=== PATIENT | female | born 1980 | race Caucasian/White ===

== ENCOUNTER 2024-10-30 14:36 | Emergency (ER) | payer OTHER, SELFPAY ==
[2024-10-30 14:44] VITALS: BP 126/97; PULSE 72; TEMP 36.7; O2SAT 98; BMI 35.9
[2024-10-30] MEDS: LIDOCAINE 2% JELLY 10 ML UR (15:21)
--- NOTE | 2024-10-30 15:28 | ED_ITS ---
HPI HPI - General Adult General Chief complaint: Abdominal Pain Stated complaint: HEMROIDS Time Seen by Provider: 10/30/24 14:42 Source: patient Mode of arrival: walk-in Limitations: no limitations History of Present Illness HPI narrative: Patient is a 44-year-old female presents to the emergency department for rectal pain for the last 2 days. She states she is afraid to have a bowel movement because she has severe pain in the rectum with having a bowel movement. She has known hemorrhoids but they have not been bleeding. She states she tried to use an oral stool softener and attempted to disimpact herself but states she was not able to remove any stool. She has no significant abdominal pain, fevers, vomiting. No concern for . Related Data Previous Rx's ?Medication ?Instructions ?Recorded bisacodyl 10 mg rectal suppository 10 mg WA DAILY 2 da ys #12 ea 10/30/24 (Dulcolax (bisacodyl)) hydrocortisone 1 %-pramoxine 1 % 1 applic WA QID PRN r ectal pain 10/30/24 rectal foam (Proctofoam HC) #10 grams lidocaine HCl 2 % mucosal solution 1 applic mucous mem brane QID PRN 10/30/24 (Lidocaine Viscous) pain #100 mL Allergies Allergy/AdvReac Type Severity Reaction Status Date / Time ketorolac (From Toradol) Allergy Severe Confusion Verified 10/30/24 14:43 Opioid HPI Opioid Management Most Recent Opioid Data: Last Pain Scale 4 Today, 14:44 Review of Systems ROS Constitutional Denies: fever or chills Respiratory Denies: shortness of breath Gastrointestinal Reports: rectal pain; Denies: abdominal pain, nausea or vomiting Integumentary/Breast Denies: rash Neurological Denies: numbness in extremities or weakness in extremities Hematologic/Lymphatic Denies: easy bruising or easy bleeding PFSH PFSH Social History Little interest or pleasure in doing things: not at all Feeling down, depressed, or hopeless: not at all Exam Narrative Exam Narrative: Gen.: Awake, alert, in no distress Head: Normocephalic, atraumatic ENT: Moist mucous membranes Respiratory: No respiratory distress Gastrointestinal: Abdomen is soft, nondistended and nontender to palpation; rectal exam performed with Che Carter, RN at bedside. 3 external hemorrhoids noted at the opening of the rectum with no swelling or thrombosis noted. No active bleeding. Internal rectal exam performed with Uro-Jet, soft stool palpated deep in the rectal vault with no firm or impacted stool noted. Possible internal hemorrhoids palpated, some discomfort with rectal exam Extremities: Moves extremities equally Psych: Normal mood and affect Neuro: No focal neuro deficit Skin: Warm, dry, intact Constitutional Vital Signs, click to edit/add: Last Vital Signs Temp 98.1 F 10/30/24 14:44 Pulse 72 10/30/24 14:44 Resp 20 10/30/24 14:44 BP 126/97 H 10/30/24 14:44 Pulse Ox 98 10/30/24 14:44 O2 Del Method Room Air 10/30/24 14:44 Course Vital Signs Vital signs: Vital Signs Temperature 98.1 F 10/30/24 14:44 Pulse Rate 72 10/30/24 14:44 Respiratory Rate 20 10/30/24 14:44 Blood Pressure 126/97 H 10/30/24 14:44 Pulse Oximetry 98 10/30/24 14:44 Oxygen Delivery Method Room Air 10/30/24 14:44 Temperature 98.1 F 10/30/24 14:44 Pulse Rate 72 10/30/24 14:44 Respiratory Rate 20 10/30/24 14:44 Blood Pressure 126/97 H 10/30/24 14:44 Pulse Oximetry 98 10/30/24 14:44 Oxygen Delivery Method Room Air 10/30/24 14:44 Medical Decision Making MDM Narrative Medical decision making narrative: Patient with rectal pain on exam, no impacted stool able to be removed on rectal exam. Small external hemorrhoids with no evidence of thrombosis or bleeding. Patient placed on rectal suppositories, Proctofoam and given topical lidocaine for comfort. She was given education and reassurance. Follow-up with PCP and return to the ER if symptoms change or worsen SHARED APC VISIT, PHYSICIAN ATTESTATION: Uhs-odxk-wk-face I performed a substantive part of the MDM during the patient?s E/M visit. I personally made or approved the documented management plan and acknowledge its risk of complications. Medical Records Medical records reviewed: Yes I reviewed the patient's medical records Discharge Plan Discharge Chief Complaint: Abdominal Pain Clinical Impression: Anal or rectal pain, Hemorrhoids Patient Disposition: Home, Self-Care Time of Disposition Decision: 15:24 Condition: Good Prescriptions / Home Meds: New lidocaine HCl [Lidocaine Viscous] 2 % solution 1 applic mucous membrane QID PRN (Reason: pain) Qty: 100 0RF bisacodyl [Dulcolax (bisacodyl)] 10 mg suppository 10 mg WA DAILY 2 Days Qty: 12 0RF Proctofoam HC 1-1 % foam 1 applic WA QID PRN (Reason: rectal pain) Qty: 10 0RF Print Language: Syriac Instructions: Rectal Pain (ED) Referrals: JANICE GONZALEZ [Primary Care Provider, Family Practice] - 1 week
== END 2024-10-30 15:38 | disposition home or self-care (01) ==
PROVIDERS: Emergency Provider Emergency Medicine; PCP Family Medicine
DX: K62.89 Other specified diseases of anus and rectum (principal); K64.4 Residual hemorrhoidal skin tags
CPT/HCPCS: 99283

== ENCOUNTER 2024-12-21 14:00 | Outpatient (OUT) | payer OTHER, SELFPAY ==
--- OUTSIDE RECORDS SUMMARY | 2024-12-22 11:31 | XMS_ITS | Clinical Summary ---
Author Organization [facility] Address [id number] [address] [place] [address] Care Team Providers Care Marketing Operations Manager Name Role Phone Nomi Wall DO Primary Care Provider [phone] Allergies Active Allergy Reactions Criticality Noted Date Comments Ketorolac Hallucinations 08/01/2022 Medications No known medications Active Problems No known active problems Family History Medical History Relation Name Comments Heart attack Father Hypertension Mother Relation Name Status Comments Father Alive Mother Alive Social History Tobacco Use Types Packs/Day Years Used Date Smoking Tobacco: Never Smokeless Tobacco: Never Tobacco Cessation:Counseling Given: Not Answered Alcohol Use Standard Drinks/Week Comments Yes 0 (1 standard drink = 0.6 oz pur e alcohol) PHQ-2 Answer Date Recorded Total Score 0 08/01/2022 Childcare Answer Date Recorded Childcare Unknown 11/11/2018 Employment Answer Date Recorded Employment Unknown 11/11/2018 Hunger Screening Answer Date Recorded Within the past 12 months we worried whether our food would run out before we got money to buy more. Never True 08/01/2022 Within the past 12 months th e food we bought just didn't last and we didn't have money to get more. Never True 08/01/2022 Comments Unknown Sex and Gender Information Value Date Recorded Sex Assigned at Not on file Legal Sex Female 12:02 PM EDT Gender Identity Not on file Sexual Orientation Not on file Last Filed Vital Signs Vital Sign Reading Time Taken Comments Blood Pressure 139/84 08/01/2022 3:43 PM EST Pulse 81 08/01/2022 3:43 PM EST Temperature 36.6 C (97.9 F) 08/01/2022 3:43 PM EST Respiratory Rate - - Oxygen Saturation 97% 08/01/2022 3:43 PM EST Inhaled Oxygen Concentration - - Weight 90.4 kg (199 lb 4.8 oz) 08/01/2022 3:43 P M EST Height 154.9 cm (5' 1 ) 08/01/2022 3:43 PM EST Body Mass Index 37.66 08/01/2022 3:43 PM EST Plan of Treatment Health Maintenance Due Date Last Done Comments Tobacco Screening 1993 DTaP,Tdap and Td Vaccines (1 - Tdap) 2000 Pap Smear 2002 Adult BMI Screening 08/02/2023 08/01/2022 Depression Screening 08/02/2023 08/01/2022 Influenza Vaccine 01/31/2025 Medical Devices Not on file Insurance [employer] Member Subscriber Plan / Payer (Ef fective 2022-Present) Name:Lety Fatima Relation to Subscriber:Spouse Name:EDGARDO FATIMA Date of :1981 Address: [address] [place] [address] [address] [place] [id number] Payer ID:Not on file Group ID:[id number] Type:Not on file Address: [place] [id number] Care Teams Marketing Operations Manager Relationship Specialty Start Date End Date Nomi Wall DO [address], [place] [address] PCP - General Family Medicine 07/16/22
== END 2024-12-21 14:01 | disposition home or self-care (01) ==
LOC: SLEEP 12-22 11:29
PROVIDERS: PCP Psychiatry & Neurology Neurology; Visit Provider Psychiatry & Neurology Neurology
DX: G47.33 Obstructive sleep apnea (adult) (pediatric) (principal)
CPT/HCPCS: 95806

== ENCOUNTER 2025-02-25 19:23 | Emergency (ER) | payer OTHER, SELFPAY ==
[2025-02-25 19:28] VITALS: BP 148/93; PULSE 78; TEMP 37; O2SAT 98; BMI 37.8
--- NOTE | 2025-02-25 19:46 | US_ITS ---
The [address] [address] Patient Name: KERVIN FATIMA MRN: [id number] date: 1980 Sex: F Assigned Patient Location: ED.MAIN Current Patient Location: ED.MAIN Accession/Order Number: [id number] Exam Date: 02/25/2025 20:30 Report Date: 02/25/2025 21:51 At the request of: CANDACE HUMPHREY MD Procedure: US right upper quadrant Ultrasound right upper quadrant INDICATION: Right upper quadrant pain for one week COMPARISON: None FINDINGS: Liver is unremarkable size and echogenicity midline shift measuring 14.5 mm. Normal hepatopedal flow. Gallbladder contracted. Negative Yao's sign no gallstones identified. No wall thickening. Common bile duct 4.2 mm. Visualized pancreas unremarkable. Right kidney unremarkable in size without hydronephrosis 9.5 x 5.5 x 4.6 cm. US/US right upper quadrant IMPRESSION: Contracted gallbladder likely related to recent meal Impression dictated by: Niko Valentin M.D. 02/25/2025 9:51 PM Dictation Location: [place] [address] Electronically authenticated by: [id number] Y Date: 02/25/2025 21:51
--- NOTE | 2025-02-25 19:48 | ED.ABDPAIN1 ---
HPI - Abdominal Pain General Chief Complaint: Abdominal Pain Stated Complaint: PRESSURE IN ABDOMIN BY RIBCAGE Time Seen by Provider: 02/25/25 19:42 Source: patient Mode of arrival: walk-in History of Present Illness HPI narrative: past history of x 2, abdominal plasty and appendectomy presents complaining of abdominal pain for the past week . Point across her upper abdomen. Pain sometimes radiates to her back. Describes feeling full after only eating small amount. last ate around 5 hours ago. No vomiting or diarrhea. Increased discomfort with deep breath Related Data Home Medications ?Medication ?Instructions ?Recorded ?Confirmed No Known Home Medications 02/25/25 02/25/25 Allergies Allergy/AdvReac Type Severity Reaction Status Date / Time ketorolac (From Toradol) Allergy Severe Confusion Verified 10/30/24 14:43 Review of Systems ROS Status of ROS 10 or more systems reviewed and unremarkable except as noted in history and below [facility] Social History Little interest or pleasure in doing things: not at all Feeling down, depressed, or hopeless: not at all Exam Constitutional Vital Signs, click to edit/add: Last Vital Signs Temp 98.6 F 02/25/25 19:28 Pulse 78 02/25/25 21:17 Resp 18 02/25/25 21:17 BP 131/106 H 02/25/25 21:17 Pulse Ox 97 02/25/25 21:17 O2 Del Method Room Air 02/25/25 21:17 Common normals: no apparent distress, average body habitus, oriented x3, no limitations, healthy appearing, alert and well nourished [facility] Common normals: normocephalic and head/scalp atraumatic Eye Common normals: PERRL, EOMs intact bilaterally and conjunctivae normal Respiratory Common normals: normal respiratory effort, no retractions, no use of accessory muscles and clear to auscultation bilaterally Cardio Common normals: regular rate, regular rhythm, S1 normal heart sound and S2 normal heart sound GI Common normals: Normal to inspection, nondistended, normoactive bowel sounds present, soft to palpation and non-tender Extremity Common normals: normal to inspection and full ROM Neuro Common normals: oriented x3, CN's II-XII intact bilaterally, moves all extremities and no focal motor deficits Psych Appearance: grossly normal Course Vital Signs Vital signs: Vital Signs Temperature 98.6 F 02/25/25 19:28 Pulse Rate 78 02/25/25 19:28 Respiratory Rate 18 02/25/25 19:28 Blood Pressure 148/93 H 02/25/25 19:28 Pulse Oximetry 98 02/25/25 19:28 Oxygen Delivery Method Room Air 02/25/25 19:28 Temperature 98.6 F 02/25/25 19:28 Pulse Rate 78 02/25/25 21:17 Respiratory Rate 18 02/25/25 21:17 Blood Pressure 131/106 H 02/25/25 21:17 Pulse Oximetry 97 02/25/25 21:17 Oxygen Delivery Method Room Air 02/25/25 21:17 MDM - Abdominal Pain MDM Narrative Medical decision making narrative: patient presents complaining of upper abdominal pain. exam nontender. ongoing past week. fullness after eating small amount or even drinking water. no fever. GB U/S unrevealing. No worrisome labs findings . CT with finding of right renal stone but no obstruction or findings to explain her symptoms. Patient advised symptoms may be GERD related. Given dose or protonix and discharged to follow up with her doctor Lab Data Labs: Lab Results 02/25/25 Range/Units 19:40 WBC 8.0 (4.0-11.0) 10^3/uL RBC 5.14 (4.20-5.40) 10^6/uL Hgb 14.6 (12.0-16.0) g/dL Hct 43.5 (36.0-48.0) % MCV 84.6 (81.0-99.0) fL MCH 28.4 (26.7-34.0) pg MCHC 33.6 (29.9-35.2) g/dL RDW 13.2 (11.0-15.0) % Plt Count 368 (150-450) 10^3/uL MPV 9.0 L (9.5-13.5) fL Neut % (Auto) 51.2 (43.0-75.0) % Lymph % (Auto) 36.4 (20.5-60.0) % [place] % (Auto) 7.5 (1.7-12.0) % Eos % (Auto) 3.0 (0.9-7.0) % Baso % (Auto) 1.0 (0.2-2.0) % Neut # (Auto) 4.1 (1.4-6.5) 10^3/uL Lymph # (Auto) 2.9 (1.2-3.8) 10^3/uL [place] # (Auto) 0.6 (0.3-0.8) 10^3/uL Eos # (Auto) 0.2 (0.0-0.7) 10^3/uL Baso # (Auto) 0.1 (0.0-0.1) 10^3/uL Abs Immat Gran (auto) 0.07 H (0.00-0.03) 10^3/uL Imm/Tot Granulo (auto) 0.9 H (0.0-0.5) % Sodium 138 (136-145) mmol/L Potassium 3.3 L (3.5-5.1) mmol/L Chloride 104 (98-107) mmol/L Carbon Dioxide 28.6 (21.0-32.0) mmol/L Anion Gap 8.7 BUN 12.0 (7.0-18.0) mg/dL Creatinine 0.87 (0.55-1.02) mg/dL Est GFR ( Amer) >60 (>=60 mL/min/1.73m^2) Est GFR (Non-Af Amer) >60 (>=60 mL/min/1.73m^2) BUN/Creatinine Ratio 13.8 Glucose 75 (74-106) mg/dL Lactate 1.0 (0.4-2.0) mmol/L Calcium 8.8 (8.5-10.1) mg/dL Total Bilirubin 0.2 (0.2-1.0) mg/dL AST 22 (15-37) U/L ALT 44 (14-59) U/L Alkaline Phosphatase 75 (46-116) U/L Total Protein 7.5 (6.4-8.2) g/dL Albumin 3.7 (3.4-5.0) g/dL Globulin 3.8 g/dL Albumin/Globulin Ratio 1.0 Lipase 38.0 (16.0-77.0) U/L Urine Color Yellow (YELLOW) Urine Clarity Clear (CLEAR) Urine pH 5.5 (5.0-9.0) Ur Specific [place] >=1.030 A (1.005-1.025) Urine Protein Negative (NEG/TRACE) mg/dL Urine Glucose (UA) Negative (NEGATIVE) mg/dL Urine Ketones Negative (NEGATIVE) mg/dL Urine Occult Blood Moderate A (NEGATIVE) Urine Nitrite Negative (NEGATIVE) Urine Bilirubin Negative (NEGATIVE) Urine Urobilinogen 0.2 (0.2-1.0) EU/dL Ur Leukocyte Esterase Negative (NEGATIVE) Urine RBC 2-5 A (0-2) #/HPF Urine WBC 0-2 A (NONE SEEN) #/HPF Ur Squamous Epith Cells Few A (NONE/RARE) #/LPF Urine Crystals None seen (None Seen) #/HPF Urine Bacteria Trace A (NONE SEEN) #/HPF Urine Casts None seen (NONE SEEN) #/LPF Urine Mucus None seen (NONE SEEN) Ur Culture Indicated? No Urine HCG, Qual Negative (NEGATIVE) Discharge Plan Discharge Chief Complaint: Abdominal Pain Clinical Impression: Abdominal pain Patient Disposition: Home, Self-Care Prescriptions / Home Meds: No Action No Known Home Medications Print Language: Japanese Instructions: Abdominal Pain (ED) Additional Instructions: follow up with your doctor next week for recheck Referrals: Ashleigh Vazquez DO [Primary Care Provider, Neurology] - 1 week
[2025-02-25 20:03] LABS: Hematocrit 43.5 % (36.0-48.0); Hemoglobin 14.6 g/dL (12.0-16.0); Immature Granulocytes Abs Auto 0.07 10^3/uL (0.00-0.03); Immature Granulocytes Pct Auto 0.9 % (0.0-0.5); Lymphocytes Absolute Auto 2.9 10^3/uL (1.2-3.8); Mean Corpuscular HGB Conc 33.6 g/dL (29.9-35.2); Mean Corpuscular Hemoglobin 28.4 pg (26.7-34.0); Mean Corpuscular Volume 84.6 fL (81.0-99.0); Platelet Count 368 10^3/uL (150-450); Red Blood Count 5.14 10^6/uL (4.20-5.40); White Blood Count 8.0 10^3/uL (4.0-11.0)
[2025-02-25 20:06] LABS: Glucose Urine UA NEGATIVE (NEGATIVE)
[2025-02-25 20:12] LABS: HCG Qualitative Urine* NEGATIVE (NEGATIVE)
[2025-02-25 20:15] LABS: Cast Seen? NONE SEEN #/LPF (NONE SEEN); Crystals Seen? None Seen #/HPF (None Seen); Urine Culture Indicated NO
[2025-02-25 20:25] LABS: Lactate/Lactic Acid 1.0 mmol/L (0.4-2.0)
[2025-02-25 20:31] LABS: Alanine Aminotransferase 44 U/L (14-59); Albumin Globulin Ratio 1.0; Albumin Level 3.7 g/dL (3.4-5.0); Alkaline Phosphatase 75 U/L (46-116); Anion Gap 8.7; Aspartate Amino Transferase 22 U/L (15-37); Blood Urea Nitrogen 12.0 mg/dL (7.0-18.0); Calcium 8.8 mg/dL (8.5-10.1); Carbon Dioxide 28.6 mmol/L (21.0-32.0); Chloride 104 mmol/L (98-107); Estimated GFR (African America >60 (>=60 mL/min/1.73m^2); Estimated GFR (Non-African Ame >60 (>=60 mL/min/1.73m^2); Globulin 3.8 g/dL; Glucose 75 mg/dL (74-106); Lipase 38.0 U/L (16.0-77.0); Potassium 3.3 mmol/L (3.5-5.1); Sodium 138 mmol/L (136-145); Total Protein 7.5 g/dL (6.4-8.2)
[2025-02-25 21:17] VITALS: BP 131/106; PULSE 78; O2SAT 97
--- NOTE | 2025-02-25 22:08 | CT_ITS ---
The [address] [address] Patient Name: KERVIN FATIMA MRN: [id number] date: 1980 Sex: F Assigned Patient Location: ER Current Patient Location: ER Accession/Order Number: [id number] Exam Date: 02/25/2025 22:23 Report Date: 02/25/2025 22:48 At the request of: CANDACE HUMPHREY MD Procedure: CT abdomen pelvis w con CT ABDOMEN AND PELVIS WITH INTRAVENOUS CONTRAST: CLINICAL HISTORY: epigastric pain COMPARISON: Ultrasound upper quadrant 02/25/2025 TECHNIQUE: Spiral images were obtained through the abdomen and pelvis following the administration of intravenous contrast. This CT exam was performed using one or more following dose reduction techniques: Automated exposure control, adjustment of the mA and/or kV according to patient size, or use of iterative reconstruction technique. FINDINGS: Lung Bases: [Minimal hypoventilatory changes left lung base.] Organs:Fatty liver. Gallbladder, spleen, adrenals, left kidney appears unremarkable. Right lower pole calculus noted, nonobstructive measuring 6 mm in size. No hydronephrosis.[ GI: Mild stool burden. No bowel obstruction. Appendix not visualized. There are no CT findings acute appendicitis.[ Pelvis:[Mild bladder distention. Uterus unremarkable. No adnexal mass.] Peritoneum/Retroperitoneum:No free air or free fluid. Aorta normal caliber.[ Abd wall/Bones:Degenerative changes L5-S1.[ CT/CT abdomen pelvis w con IMPRESSION: Negative acute inflammatory process or bowel obstruction Right lower pole calculus, nonobstructive. Impression dictated by: Niko Valentin M.D. 02/25/2025 10:48 PM Dictation Location: [place] [address] Electronically authenticated by: [id number] Y Date: 02/25/2025 22:48
[2025-02-25] MEDS: PANTOPRAZOLE SODIUM 40 MG TABLET.DR PO (23:20)
[2025-02-25 23:28] VITALS: BP 136/80; PULSE 79; O2SAT 97
== END 2025-02-25 23:28 | disposition home or self-care (01) ==
PROVIDERS: Emergency Provider Internal Medicine; PCP Psychiatry & Neurology Neurology
DX: R10.10 Upper abdominal pain, unspecified (principal); Z90.49 Acquired absence of other specified parts of digestive tract
CPT/HCPCS: 36415; 74177; 76705; 80053; 81001; 83605; 83690; 84703; 85025; 99285; Q9967

== ENCOUNTER 2025-03-30 12:32 | Outpatient (OUT) | payer OTHER, SELFPAY ==
--- OUTSIDE RECORDS SUMMARY | 2005-12-26 05:05 | XMS_ITS | Continuity of Care Document ---
Author Organization [facility] Address [address] [place] [address] Phone Care Team Providers Care Balloon Dipper Name Role Phone Shawn Wheat Unavailable Unavailable Advance Directives Directive Yes / No Effective Date File Name No Information Encounters Encounter Description Practice Location Reason(s) For Visit Diagnoses Date Provider Providers Copied on Encounter [facility], [address], [place], [place], [id number], [place] tel:[phone] [facility] Internal Medicine No Information Cynthia Escobar. [address], [place], [id number], [place]. tel:[phone] Family History Family Member Type Diagnosis Age At Onset No Information Payers Payer name Insurance type Covered republican ID Authoriza tion(s) No Information Social History Type Description Quantity Date Captured Comments Sex Female Smoking Status No Information Chief Complaint And Reason For Visit No Information Reason For Referral Reason For Referral No Information History Of Present Illness Encounter Date Complaint History Of Prese nt Illness No Information Functional Status Date Functional Assessmen t No Information Instructions Date Instruction Additional Infor mation No Information Assessments Type Assessment Date No Information Patient Care Teams Name Effective Dates (start - stop) Status Members No Information
--- OUTSIDE RECORDS SUMMARY | 2025-03-30 12:35 | XMS_ITS | Clinical Summary ---
Author Organization [facility] tem Address [id number] [address] [place] [address] Care Team Providers Care Java Sql Developer Name Role Phone Nomi Wall DO Primary Care Provider + [phone] Allergies Active AllergyReactionsCriticalityNoted DateCommentsKetorolacHallucinations 08/01/2022 Medications No known medications Active Problems No known active problems Family History Medical HistoryRelationNameCommentsHeart attackFatherHypertensionMotherRelation NameStatusCommentsFatherAliveMotherAlive Social History Tobacco UseTypesPacks/DayYears UsedDateSmoking Tobacco: NeverSmokeless Tobacco: Never Tobacco Cessation:Counseling Given: Not Answered Alcohol UseStandard Drinks/WeekCommentsYes0 (1 standard drink = 0.6 oz pure alcohol)PHQ-2AnswerDate RecordedTotal Gohax286hildcareAnswerDate OpbmlqfhOzoyvxhikOcovjvg17/12/2019EmploymentAnswerDate RecordedEmploymentUnknown 11/11/2018Hunger ScreeningAnswerDate RecordedWithin the past 12 months we worried whether our food would run out before we got money to buy more.Never True08/01/2022Within the past 12 months the food we bought just didn't last and we didn't have money to get more.Never True08/01/2022CommentsUnknownSex and Gender InformationValueDate RecordedSex Assigned at BirthNot on fileLegal RrlRycjgi44/06/2015 12:02 PM EDTGender IdentityNot on fileSexual OrientationNot on file Last Filed Vital Signs Vital SignReadingTime TakenCommentsBlood Afbfifyl707/8408/01/2022 3:43 PM EST Nnohv912508/01/2022 3:43 PM VUYLsnzxdkcfyu07.6 ??C (97.9 ??F)08/01/2022 3:43 PM ESTRespiratory Rate--Oxygen Sewsexazde50%08/01/2022 3:43 PM ESTInhaled Oxygen Concentration--Gjjpgz48.4 kg (199 lb 4.8 oz)08/01/2022 3:43 PM GBDZdclkq031.9 cm (5' 1 )08/01/2022 3:43 PM ESTBody Mass Index37.66008/01/2022 3:43 PM EST Plan of Treatment Health MaintenanceDue DateLast DoneCommentsTobacco Uvfgfqsmv79/04/1994DTaP,Tdap and Td Vaccines (1 - Tdap)2000Pap Smear2002Adult BMI Screening /epression Kfnkkunah74/07/2022Influenza Vaccine 01/31/2025 Medical Devices Not on file [address] [place] [address] Care Teams Team MemberRelationshipSpecialtyStart DateEnd Date Nomi Wall DO [address], [facility] [place] [address] PCP - GeneralFamily Medicine07/16/22
== END 2025-03-30 12:33 | disposition home or self-care (01) ==
LOC: FHNEUROLOG 12:33
PROVIDERS: PCP Psychiatry & Neurology Neurology; Visit Provider Psychiatry & Neurology Neurology
DX: G47.33 Obstructive sleep apnea (adult) (pediatric) (principal); G47.10 Hypersomnia, unspecified; R06.83 Snoring; R51.9 Headache, unspecified; R42 Dizziness and giddiness
CPT/HCPCS: G0463

== ENCOUNTER 2025-06-01 15:59 | Emergency (ER) | payer OTHER, SELFPAY ==
--- OUTSIDE RECORDS SUMMARY | 2025-05-27 12:52 | XMS_ITS | Continuity of Care Document ---
Author Organization [facility] Address [address] [place] [address] Phone Care Team Providers Care Buckle Sewer Machine Name Role Phone Viki Troncoso APRN Attending Provider [phone] Grace Carranza APRN Attending Provider Nomi Wall DO Primary Care Provider Care Teams Patient Care Team Team Status: Active Member Role/Relationship Status Dates Nomi Wall DO Primary Care Provider Active Patient Care Team Team Status: Active Member Role/Relationship Status Dates Viki Troncoso APRN Attending Provider Active Start: March 30, 2025 Patient Care Team Team Status: Inactive Member Role/Relationship Status Dates Grace Carranza APRN Attending Provider Active S tart: May 27, 2025 End: May 27, 2025Davidson Edgra Care ProviderActiveStart: May 27, 2025 End: May 27, 2025 Chief Complaint and Reason for Visit Chief Complaint Admit Date Cough, congestion 1of3 May 27 4:22pm Allergies, Adverse Reactions, Alerts Allergen Type Severity Reaction Last Updated Verified Status tramadol Allergy Unknown Confusion May 27, 2025 5:17pm Ye s Active Social History Smoking Status Unknown if ever smoked Observation Status Observation Response Date of Response Legal Sex Female (finding) [facility] 1980 Medications Medication Status Dose Units Route Directions Qty Days Refills S tart Date Stop Date End Date Reason(s) Instructions Adherence Pantoprazole 40 mg tablet,delayed release (DR/EC ) Discontinued MGPODecember 2024 12:00amDece2024 5:17pmBenzonatate 200 mg kqkqmkpYdkumh258XHYA8-0 TIMES PER DAY as needed for wlgdm9275MevizllbMay 27, 2025 12:00amComplies with drug therapyAlbuterol Sulfate 90 mcg/actuation HFA aerosol axxcuruGsrszj3MTFGAAVXSUEYGQIDXG 4-6 HOURS as needed for shortness of breath or wheezing6.70May 27, 2025 12:00amComplies with drug therapy Vital Signs Vital Reading Result Reference Range Collection Date/Time Height 61 [in_i] May 27, 2025 5:89jiMatmyp04.57 kgMay 27, 2025 5:18pmBody [place]74.4 [degF]97.6-99.0May 27, 2025 5:18pmHeart Rate64 /scf06-404 May 27, 2025 5:18pmRespiratory rate18 /rhn26-96Oewdjkax 26th, 2025 5:18pm Oxygen saturation by Pulse awsunpxk39 %95-100May 27, 2025 5:18pmBP Mllvlhvb591 mm[Hg]100-140May 27, 2025 5:18pmBP Huvqtuesn66 mm[Hg]60-100 May 27, 2025 5:18pmBMI (Body Mass Index)39.4 kg/i8Muhrslom2024 5:18pm Advance Directives Advance Directive Response Recorded Date/ Time Advance Directives No January 08 1:06pm Insurance Providers Guarantor Kelley Sheikh Address [address] [facility] [address]Tlckdwv Info.Home Phone: Coverage Status Update:2025 Payer Group Member ID Coverage Type Subscriber Relationship to Subscriber Effective Date Expiration Date [employer] Not [id number] Chambers , M Id: [id number] [address] [facility] [address] Home Phone: Email: [email or web address] Encounters Encounter Location(s) Arrival/Admit Date Discharge/Departure Date Discharge/Departure Disposition Provider(s) Non-patient / Non-visit -[facility] OutPt Oct er 2024 11:59pm Kelley Valenzuela APRNDeparted Physician/Provider Office Visit-[facility] 5:51pmDischarged to home care or self care (routine discharge)Kelley Rich CHIEF CONCIERGE
[2025-06-01 16:03] VITALS: BP 138/92; PULSE 74; TEMP 37.2; O2SAT 98; BMI 39.3
--- NOTE | 2025-06-01 16:09 | XR_ITS ---
[address] [address] Patient Name: KERVIN FATIMA MRN: [id number] date: 1980 Sex: F Assigned Patient Location: ER Current Patient Location: ER Accession/Order Number: [id number] Exam Date: 06/01/2025 16:15 Report Date: 06/01/2025 16:25 At the request of: OLGA SALDANA MD Procedure: XR chest 2V Plain film chest 2 view HISTORY: Cough for 2 weeks COMPARISON: None FINDINGS: SUPPORT DEVICES: None POSTSURGICAL CHANGES: None HEART: Within normal limits PULMONARY WILLIAM: Within normal limits MEDIASTINUM: Unremarkable LUNGS AND PLEURA: No acute lung process, pleural effusion or pneumothorax identified. BONY STRUCTURES: Intact ADDITIONAL FINDINGS None XR/XR chest 2V IMPRESSION: No acute process. Impression dictated by: Jamie Suggs M.D. 06/01/2025 4:25 PM Dictation Location: [place] [address] Electronically authenticated by: [id number] Y Date: 06/01/2025 16:25
[2025-06-01 16:29] LABS: SARS-CoV-2 Ag NEGATIVE (NEGATIVE)
[2025-06-01 19:40] VITALS: BP 136/96; PULSE 107; O2SAT 97
--- NOTE | 2025-06-01 19:48 | ED_ITS ---
HPI HPI - General Adult General Chief complaint: Upper Respiratory Infection Stated complaint: Upper Respiratory Infection Time Seen by Provider: 06/01/25 19:41 Source: patient Mode of arrival: walk-in History of Present Illness HPI narrative: 44-year-old female presents for 2-week history of a dry cough. She states is unusual for her to get sick like this. Other family members have been sick as well. They seem to have gotten better but she has been sick for 2 weeks. No vomiting or diarrhea or hemoptysis or known fever. She was seen at an urgent care and was put on Proventil and Tessalon. She does not feel much better. Related Data Previous Rx's ?Medication ?Instructions ?Recorded azithromycin 250 mg tablet See Rx Instructions PO .COM PLEX #6 06/01/25 (Zithromax Z-William) tabs codeine 10 mg-guaifenesin 100 mg/5 5 ml PO Q6H PRN cou gh #120 mL 06/01/25 mL oral liquid Allergies Allergy/AdvReac Type Severity Reaction Status Date / Time ketorolac (From Toradol) Allergy Severe Confusion Verified 10/30/24 14:43 Opioid HPI Opioid Management Most Recent Opioid Data: Last Pain Scale 4 02/25/25, 19:48 Review of Systems ROS Narrative A ten point review of systems is negative except as noted above. PFSH PFSH Social History Little interest or pleasure in doing things: not at all Feeling down, depressed, or hopeless: not at all Exam Narrative Exam Narrative: Nurses note and vital signs reviewed General:The patient appears well and in no apparent distress.Patient is resting comfortably on cart. She coughs occasionally. Skin:Warm, dry, no pallor noted.There is no rash noted. Head:Normocephalic, atraumatic Eye: Normal conjunctiva, no drainage Ears, Nose, Mouth, and Throat: oral mucosa is moist. Nares patent. Cardiovascular:Regular Rate and Rhythm Respiratory:Patient is in no distress, no accessory muscle use, lungs are clear to auscultation, no wheezing, rales or rhonchi. Good air movement present. Back:non-tender GI: Soft and nontender Musculoskeletal: The patient has no evidence of calf tenderness, no pitting edema, symmetrical pulses noted bilaterally Neurological:A&O, normal speech Psychiatric:Cooperative Constitutional Vital Signs, click to edit/add: Last Vital Signs Temp 99.0 F 06/01/25 16:03 Pulse 107 H 06/01/25 19:40 Resp 16 06/01/25 19:40 BP 136/96 H 06/01/25 19:40 Pulse Ox 97 06/01/25 19:40 O2 Del Method Room Air 06/01/25 19:40 Course Vital Signs Vital signs: Vital Signs Temperature 99.0 F 06/01/25 16:03 Pulse Rate 74 06/01/25 16:03 Respiratory Rate 18 06/01/25 16:03 Blood Pressure 138/92 H 06/01/25 16:03 Pulse Oximetry 98 06/01/25 16:03 Oxygen Delivery Method Room Air 06/01/25 16:03 Temperature 99.0 F 06/01/25 16:03 Pulse Rate 107 H 06/01/25 19:40 Respiratory Rate 16 06/01/25 19:40 Blood Pressure 136/96 H 06/01/25 19:40 Pulse Oximetry 97 06/01/25 19:40 Oxygen Delivery Method Room Air 06/01/25 19:40 Medical Decision Making MDM Narrative Medical decision making narrative: Chest x-ray, COVID, and influenza are negative and the patient is discharged home on Zithromax and Robitussin AC. Treatment diagnosis and follow-up were discussed with the patient. Differential Diagnosis Differential Diagnosis: COVID, influenza, pneumonia, URI Lab Data Lab results reviewed: Yes I reviewed the patient's lab results Labs: Lab Results 06/01/25 Range/Units 16:08 Influenza Type A Ag Negative Influenza Type B Ag Negative SARS-CoV-2 Ag (CV2AG) Negative (NEGATIVE) Imaging Data Chest x-ray: Radiologist's impression: ITS Impressions Chest X-Ray 06/01/25 16:09 IMPRESSION: No acute process. Impression dictated by: Jamie Suggs M.D. 06/01/2025 4:25 PM Dictation Location: [place] [address] Electronically authenticated by: [id number] Y Date: 06/01/2025 16:25 Discharge Plan Discharge Chief Complaint: Upper Respiratory Infection Clinical Impression: Upper respiratory infection Patient Disposition: Home, Self-Care Time of Disposition Decision: 19:46 Condition: Good Mode of Transportation: Private Vehicle Prescriptions / Home Meds: New azithromycin [Zithromax Z-William] 250 mg tablet See Rx Instructions .ROUTE .COMPLEX Qty: 6 0RF Rx Instructions: For 250 mg dose pack: take 500 mg today (day 1), then 250 mg for 4 days (days 2-5) codeine-guaifenesin 10-100 mg/5 mL liquid 5 ml PO Q6H PRN (Reason: cough) Qty: 120 0RF Print Language: [place] Instructions: Upper Respiratory Infection (ED) Referrals: Ashleigh Vazquez DO [Primary Care Provider, Neurology] - 1 week
--- OUTSIDE RECORDS SUMMARY | 2025-06-01 19:48 | XMS_ITS | Clinical Summary ---
Author Organization [facility] tem Address [facility] [id number] [address] [place] [address] Care Team Providers Care Public Policy Coordinator Name Role Phone Nomi Wall DO Primary Care Provider + [phone] Allergies Active AllergyReactionsCriticalityNoted DateCommentsKetorolacHallucinations 08/01/2022 Medications No known medications Active Problems No known active problems Family History Medical HistoryRelationNameCommentsHeart attackFatherHypertensionMotherRelation NameStatusCommentsFatherAliveMotherAlive Social History Tobacco UseTypesPacks/DayYears UsedDateSmoking Tobacco: NeverSmokeless Tobacco: Never Tobacco Cessation:Counseling Given: Not Answered Alcohol UseStandard Drinks/WeekCommentsYes0 (1 standard drink = 0.6 oz pure alcohol)PHQ-2AnswerDate RecordedTotal Ftlvr859hildcareAnswerDate EtrndayuLboqvrrhgPrtbcos03/12/2019EmploymentAnswerDate RecordedEmploymentUnknown 11/11/2018Hunger ScreeningAnswerDate RecordedWithin the past 12 months we worried whether our food would run out before we got money to buy more.Never True08/01/2022Within the past 12 months the food we bought just didn't last and we didn't have money to get more.Never True08/01/2022CommentsUnknownSex and Gender InformationValueDate RecordedSex Assigned at BirthNot on fileLegal HjwKhuiet90/06/2015 12:02 PM EDTGender IdentityNot on fileSexual OrientationNot on file Last Filed Vital Signs Vital SignReadingTime TakenCommentsBlood Ccixvmiq280/8408/01/2022 3:43 PM EST Wcibg831808/01/2022 3:43 PM IVHGzgjrxjoxkp50.6 ??C (97.9 ??F)08/01/2022 3:43 PM ESTRespiratory Rate--Oxygen Ntwleamaon26%08/01/2022 3:43 PM ESTInhaled Oxygen Concentration--Smmlow43.4 kg (199 lb 4.8 oz)08/01/2022 3:43 PM NGBWbugzx776.9 cm (5' 1 )08/01/2022 3:43 PM ESTBody Mass Index37.66008/01/2022 3:43 PM EST Plan of Treatment Health MaintenanceDue DateLast DoneCommentsTobacco Xungwteug35/04/1994DTaP,Tdap and Td Vaccines (1 - Tdap)2000Pap Smear2002Adult BMI Screening /epression Yhjyrofae64/07/2022Influenza Vaccine 01/31/2025 Medical Devices Not on file [address] [place] [address] Care Teams Team MemberRelationshipSpecialtyStart DateEnd Date Nomi Wall DO [address], [facility] [place] [address] PCP - GeneralFamily Medicine07/16/22
== END 2025-06-01 19:54 | disposition home or self-care (01) ==
PROVIDERS: Emergency Medicine; Emergency Provider Emergency Medicine; PCP Psychiatry & Neurology Neurology
DX: J06.9 Acute upper respiratory infection, unspecified (principal)
CPT/HCPCS: 71046; 87804; 87811; 99283